=== PATIENT | female | born 1980 | race American Indian/Alaskan Native ===

== ENCOUNTER 2018-04-14 19:21 | Emergency (ER) | payer MEDICAID, OTHER ==
[2018-04-14 19:27] VITALS: BP 140/62
[2018-04-14] MEDS ORDERED: Sodium Chloride 0.9% 1,000 ML IV SCH (19:45)
[2018-04-14] MEDS ORDERED: Ketorolac 30 MG/ML SDV IVPUSH ONE (19:45)
[2018-04-14] MEDS ORDERED: Ondansetron 4 MG/2 ML SDV IVPUSH ONE (19:46)
--- NOTE | 2018-04-14 20:28 | EDM.PDOC ---
ED HPI GENERAL MEDICAL PROBLEM - General Chief Complaint: Abdominal Pain Stated Complaint: abdominal pain Time Seen by Provider: 04/14/18 20:00 Source of Information: Reports: Patient History Limitations: Reports: No Limitations - History of Present Illness INITIAL COMMENTS - FREE TEXT/NARRATIVE: Ayla is a 38 yo female who presents to the ER with complaints of kidney stones. She states she was seen on the 10 of April in [place] and had a CT scan done which showed kidney stones. She was scheduled to see urology this Wednesday but the appointment was moved to the 12 of May. She states the pain has been off and on since the . She denies any fevers. Was given 6 tablets of [place] which gave her mild relief. She states the pain starts in her left flank area and moves around to the LLQ. She states she does have a history of diverticulosis and is to have an EGD and colonoscopy soon. She has been trying to increase fluid intake. She admits to a lot of soda and energy drinks, which she has been trying to cut back on. She was given a urinary strainer but states she hasn't seen any stones yet. Duration: Waxing/Waning Location: Reports: Abdomen, Pelvis Quality: Reports: Sharp Left Lower Flank Pain Score (Numeric/FACES): 7 - Related Data Allergies Allergy/AdvReac Type Severity Reaction Status Date / Time acetaminophen Allergy Unknown Shortness Verified 04/14/18 19:27 [From Darvocet-N 100] of Breath erythromycin base Allergy Unknown Cannot Verified 04/14/18 19:27 [Erythromycin Base] Remember metoclopramide HCl Allergy Unknown Shortness Verified 04/14/18 19:27 [From Reglan] of Breath nabumetone [From Relafen] Allergy Unknown Shortness Verified 04/14/18 19:27 of Breath propoxyphene napsylate Allergy Unknown Shortness Verified 04/14/18 19:27 [From Darvocet-N 100] of Breath Home Meds: Home Meds PNV95/Ferrous Fumarate/FA [ Tablet] 1 tab PO DAILY 03/04/18 [History] Ibuprofen [Motrin] 600 mg PO Q6H PRN 03/12/18 [History] Cyanocobalamin (Vitamin B-12) [Vitamin B-12] 1,000 mcg IM ASDIRECTED 04/10/18 [ History] Promethazine HCl 25 mg PO DAILY 04/14/18 [History] Past Medical History - Past Health History Medical/Surgical History: Denies Medical/Surgical History HEENT History: Reports: None Cardiovascular History: Reports: None Respiratory History: Reports: Asthma Gastrointestinal History: Reports: Diverticulosis Genitourinary History: Reports: Renal Calculus INFIRMARY ATTENDANT History: Reports: , Other (See Below) Other INFIRMARY ATTENDANT History: tubal ligation Musculoskeletal History: Reports: None Neurological History: Reports: Migraines Other Neuro History: botox treatment took care of headaches Psychiatric History: Reports: Anxiety, Panic Attack Endocrine/Metabolic History: Reports: None Hematologic History: Reports: None Immunologic History: Reports: None Oncologic (Cancer) History: Reports: None Dermatologic History: Reports: None - Infectious Disease History Infectious Disease History: Reports: Measles - Past Surgical History HEENT Surgical History: Reports: Tonsillectomy GI Surgical History: Reports: Cholecystectomy Female Surgical History: Reports: Tubal Ligation Social & Family History - Family History Family Medical History: Noncontributory - Tobacco Use Smoking Status *Q: Current Every Day Smoker Years of Tobacco use: 3 Packs/Tins Daily: 0 - Caffeine Use Caffeine Use: Reports: Coffee, Energy Drinks, Soda Other Caffeine Use: Has 1 energy drink and and 1 soda per day. - Recreational Drug Use Recreational Drug Use: No - Living Situation & Occupation Living situation: Reports: Single, with Family Occupation: Employed ED ROS GENERAL - Review of Systems Review Of Systems: See Below Constitutional: Reports: Decreased Appetite. Denies: Fever, Chills HEENT: Reports: No Symptoms Respiratory: Reports: No Symptoms Cardiovascular: Reports: No Symptoms GI/Abdominal: Reports: Abdominal Pain, Nausea. Denies: Bloody Stool, Constipation, Diarrhea, Vomiting : Reports: Flank Pain, Hematuria. Denies: Irregular Menses ED EXAM, RENAL/ - Physical Exam Exam: See Below Exam Limited By: No Limitations General Appearance: Alert, Mild Distress Head: Atraumatic, Normocephalic Neck: Normal Inspection Respiratory/Chest: No Respiratory Distress, Lungs Clear, Normal Breath Sounds, No Accessory Muscle Use Cardiovascular: Regular Rate, Rhythm, No Edema, No Murmur GI/Abdominal: Normal Bowel Sounds, Soft, Tender (LLQ, suprapubic) Back Exam: CVA Tenderness (L). No: CVA Tenderness (R) Neurological: Alert, Oriented, Normal Cognition Psychiatric: Normal Affect, Normal Mood Skin Exam: Warm, Dry, Intact, Normal Color, No Rash Course - Vital Signs Last Recorded V/S: Last Vital Signs Temp 98.1 F 04/14/18 19:23 Pulse 75 04/14/18 19:23 Resp 18 04/14/18 19:23 BP 140/62 04/14/18 19:23 Pulse Ox 100 04/14/18 19:23 - Orders/Labs/Meds Orders: Active Orders 24 hr Category Date Time Status CBC WITH AUTO DIFF [HEME] Stat Lab 04/14/18 19:43 Ordered COMPREHENSIVE METABOLIC PN,CMP [CHEM] Stat Lab 04/14/18 19:43 Ordered CRP [C-REACTIVE PROTEIN] [CHEM] Stat Lab 04/14/18 19:43 Ordered UA W/MICROSCOPIC [URIN] Stat Lab 04/14/18 19:43 Ordered Sodium Chloride 0.9% [Normal Saline] 1,000 ml Med 04/14/18 19:45 Active IV ASDIRECTED Medication Orders Sodium Chloride (Normal Saline) 1,000 mls @ 999 mls/hr IV ASDIRECTED LEONOR Last Admin: 04/14/18 19:55 Dose: 999 mls/hr Meds: Medications Generic Name Dose Route Start Last Admin Trade Name Freq PRN Reason Stop Dose Admin Sodium Chloride 1,000 mls @ 999 mls/hr 04/14/18 19:45 04/14/18 19:55 Normal Saline IV 999 mls/hr ASDIRECTED LEONOR Administration Discontinued Medications Generic Name Dose Route Start Last Admin Trade Name Freq PRN Reason Stop Dose Admin Ketorolac Tromethamine 30 mg 04/14/18 19:45 04/14/18 20:01 Toradol IVPUSH 04/14/18 19:46 30 mg ONETIME ONE Administration Ondansetron HCl 4 mg 04/14/18 19:46 04/14/18 19:58 Zofran IVPUSH 04/14/18 19:47 4 mg ONETIME ONE Administration Departure - Departure Time of Disposition: 20:53 Disposition: Home, Self-Care 01 Condition: Good Clinical Impression: Ureteric stone - Discharge Information *PRESCRIPTION DRUG MONITORING PROGRAM REVIEWED*: Yes *COPY OF PRESCRIPTION DRUG MONITORING REPORT IN PATIENT NADIA: No Instructions: Kidney Stones, [id number], Pain Medicine Instructions, Easy-to- Read Additional Instructions: 1) [place] 5/325 - 1 tablet twice a day for severe pain 2) Toradol 10mg - 1 tablet every 8 hours as needed for pain 3) Recommend taking home prescription of promethazine for nausea 4) Discussed CT results from the with Ayla. No obstructing stones were seen. Multiple 3mm or less stones were seen to bilateral renal sinuses. 5) Recommend following up with primary provider 6) hand out on kidney stones given *If any fevers, increased discomfort, or any concerning symptoms... recommend returning for reevaluation. - Problem List & Annotations (1) Ureteric stone SNOMED Code(s): 75669077 Code(s): N20.1 - CALCULUS OF URETER Status: Acute - My Orders Last 24 Hours: My Active Orders 04/14/18 19:43 CBC WITH AUTO DIFF [HEME] Stat COMPREHENSIVE METABOLIC PN,CMP [CHEM] Stat CRP [C-REACTIVE PROTEIN] [CHEM] Stat UA W/MICROSCOPIC [URIN] Stat 04/14/18 19:45 Sodium Chloride 0.9% [Normal Saline] 1,000 ml IV ASDIRECTED - Assessment/Plan Last 24 Hours: My Active Orders 04/14/18 19:43 CBC WITH AUTO DIFF [HEME] Stat COMPREHENSIVE METABOLIC PN,CMP [CHEM] Stat CRP [C-REACTIVE PROTEIN] [CHEM] Stat UA W/MICROSCOPIC [URIN] Stat 04/14/18 19:45 Sodium Chloride 0.9% [Normal Saline] 1,000 ml IV ASDIRECTED Plan: Reviewed ER and CT report from the . 6 tablets of [place] were given to patient and recommendation to follow up with urology and to push fluids were given. CT report from the did show multiple calculi to bilateral renal sinuses, non-obstructing with greatest measuring 3mm in size. No other intra- abdominal pathology was seen. Ayla's WBC was 6600. Hgb was 10.3; however on the it appeared to be 9.9. MCV is low and questioning iron deficiency anemia. Recommend following up with primary in regards to iron deficiency work up. Ayla was given 1 Liter bolus of Normal saline with 30mg of Toradol and 4mg of Zofran IV. Vital signs have been stable and will discharge home at this time. Instructions to continue pushing fluids, straining urine and to follow up with urology. Advised if any fevers, worsening discomfort, etc... need to return for reevaluation/imaging.
[2018-04-14 20:37] LABS: CHLORIDE,CL 108 mEq/L (98-106); SODIUM,NA 141 mEq/L (136-145)
[2018-04-14] MEDS ORDERED: Take Home: Ketorolac 10 MG Tab, 4 Tab Pack PO ONE (20:41)
[2018-04-14] MEDS ORDERED: Take Home: Acetaminophen/HYDROcodone 325-5 MG, 2 Tab Pack PO ONE (20:41)
[2018-04-14] MEDS ORDERED: Take Home: Ondansetron 4 MG Tab.DIS, 2 Tab Pack PO ONE (20:41)
== END 2018-04-14 21:05 | disposition home or self-care (01) ==
LOC: CC.ED 19:21
DX: N20.1 Calculus of ureter (principal); F17.210 Nicotine dependence, cigarettes, uncomplicated; Z79.899 Other long term (current) drug therapy; Z88.8 Allergy status to other drugs, medicaments and biological substances; Z88.6 Allergy status to analgesic agent; Z88.1 Allergy status to other antibiotic agents
CPT/HCPCS: 36415; 80053; 81003; 85025; 86140; 96361; 96374; 96375; 99284; A9270-GY; J1885; J2405; J7030